=== PATIENT | female | born 1990 | race Caucasian/White ===

== ENCOUNTER 2022-10-26 17:14 | Emergency (ER) | payer BC ==
[~2022-10-26] VITALS: Ht 172.7 cm; Wt 68.0 kg
[2022-10-26 17:36] LABS: HEMATOCRIT 38.6 % (31.2-41.9); MEAN CORPUSCULAR HEMOGLOBIN 27.5 uug (24.7-32.8); MEAN CORPUSCULAR VOLUME 83.2 fL (75.5-95.3); PLATELET COUNT (AUTO) 304 K/uL (179-408)
[2022-10-26 17:47] LABS: CREATININE 0.8 mg/dL (0.6-1.3); POTASSIUM 4.3 mmol/L (3.5-5.1)
--- NOTE | 2022-10-26 17:54 | NUR ---
PT out of ER for CT scan.
[2022-10-26 17:59] LABS: BILIRUBIN,TOTAL 0.4 mg/dL (0.2-1.0)
[2022-10-26 18:07] LABS: *URINE HCG, QUAL NEG (NEGATIVE)
[2022-10-26 18:08] LABS: *BILIRUBIN,URIN NEGATIVE (NEGATIVE); *BLOOD, URINE TRACE (NEGATIVE); *CLARITY,URINE CLEAR (CLEAR); *COLOR,URINE YELLOW (YELLOW); *KETONES,URINE NEGATIVE (NEGATIVE); *UROBILINOGEN,URINE 0.2 E.U./dl (NORMAL); LEUKOCYTE ESTERASE ,URINE TRACE (NEGATIVE); NITRITE, URINE NEGATIVE (NEGATIVE); PH,URINE 6.5 (5.0-8.0); UGLUCOSE NEGATIVE (NEGATIVE)
[2022-10-26 19:15] VITALS: BP 127/66
--- NOTE | 2022-10-26 19:15 | NUR ---
Patient discharged to home in stable condition. Written and verbal after care instructions given. Patient verbalizes understanding of instructions. Stressed follow up or return to ER for worsening s/s.
[2022-10-26 21:46] LABS: BACTERIA,URINE MA /HPF (NONE SEEN); SQUAMOUS EPITHELIAL CELL,UR FEW /HPF (NONE SEEN)
== END 2022-10-26 19:15 | disposition home or self-care (01) ==
LOC: ER 17:17
DX: S06.0XAA Concussion with loss of consciousness status unknown, initial encounter (principal); R40.2362 Coma scale, best motor response, obeys commands, at arrival to emergency department; R40.2142 Coma scale, eyes open, spontaneous, at arrival to emergency department; R40.2252 Coma scale, best verbal response, oriented, at arrival to emergency department; W19.XXXA Unspecified fall, initial encounter
CPT/HCPCS: 36415; 70450; 84484; 84703; 85025; 93005; A4663

== ENCOUNTER 2023-06-23 07:25 | Emergency (ER) | payer BC, OTHER ==
[~2023-06-23] VITALS: Ht 160 cm; Wt 72.6 kg
[2023-06-23] MEDS ORDERED: KETOROLAC TROMETHAMINE 15 MG INJ ONE (07:58)
[2023-06-23] MEDS ORDERED: BENZ-13 PO (08:00)
[2023-06-23] MEDS ORDERED: IBUP-1955 PO (08:00)
[2023-06-23] MEDS: KETOROLAC TROMETHAMINE 15 MG INJ IM ONE (08:02)
[2023-06-23 08:09] VITALS: BP 103/65; O2SAT 100
== END 2023-06-23 08:09 | disposition home or self-care (01) ==
LOC: ER 07:25
DX: U07.1 COVID-19 (principal); J06.9 Acute upper respiratory infection, unspecified; B97.89 Other viral agents as the cause of diseases classified elsewhere; J02.9 Acute pharyngitis, unspecified
CPT/HCPCS: 99283; 87635; 36415; 96372; C9803; J1885; A4663

== ENCOUNTER 2023-06-25 07:49 | Emergency (ER) | payer BC, OTHER ==
[~2023-06-25] VITALS: Ht 160 cm; Wt 72.6 kg
[~2023-06-25 07:49] MED LIST: BENZ-13 PO; IBUP-1955 PO
[2023-06-25 08:00] VITALS: O2SAT 99
== END 2023-06-25 08:44 | disposition home or self-care (01) ==
LOC: ER 07:49
DX: U07.1 COVID-19 (principal); Z79.1 Long term (current) use of non-steroidal anti-inflammatories (NSAID); Z79.899 Other long term (current) drug therapy
CPT/HCPCS: 86403; A4663

== ENCOUNTER 2024-05-18 12:47 | Emergency (ER) | payer BC, OTHER ==
[~2024-05-18] VITALS: Ht 160 cm; Wt 77.1 kg
[2024-05-18] MEDS ORDERED: SCOP1PAT13 TP (13:15)
[2024-05-18] MEDS ORDERED: ONDA4TAB5 PO (13:16)
[2024-05-18] MEDS ORDERED: MECL-159 PO (13:16)
[2024-05-18] MEDS ORDERED: SCOPOLAMINE PATCH 1 MG/72 HRS PATCH TD ONE (13:18)
[2024-05-18] MEDS: SCOPOLAMINE PATCH 1 MG/72 HRS PATCH TD SCH (13:21)
[2024-05-18 13:26] LABS: *URINE HCG, QUAL NEGATIVE (NEGATIVE)
[2024-05-18 13:31] LABS: BASOPHILS % (AUTO) 0.3 % (0.0-2.0); EOSINOPHILS # (AUTO) 0.1 K/uL (0.0-0.7); EOSINOPHILS % (AUTO) 1.2 % (0.0-7.0); HEMATOCRIT 38.8 % (31.2-41.9); HEMOGLOBIN 12.3 g/dL (10.9-14.3); LYMPHOCYTES # (AUTO) 2.7 K/uL (0.8-4.8); LYMPHOCYTES % (AUTO) 47.2 % (20.5-51.5); MEAN CORPUSCULAR HEMOGLOBIN 25.4 uug (24.7-32.8); MEAN CORPUSCULAR HGB CONC 32 g/dL (32.3-35.6); MEAN CORPUSCULAR VOLUME 80.3 fL (75.5-95.3); MONOCYTES # (AUTO) 0.4 K/uL (0.1-1.30); MONOCYTES % (AUTO) 6.5 % (0.0-11.0); NEUTROPHILS # (AUTO) 2.6 K/uL (1.8-8.9); NEUTROPHILS % (AUTO) 44.8 % (38.5-71.5); PLATELET COUNT (AUTO) 380 K/uL (179-408); RED BLOOD CELL COUNT(AUTO) 4.83 MIL/uL (3.63-4.92); RED CELL DISTRIBUTION WIDTH 15.1 % (12.3-17.7); WHITE BLOOD COUNT (AUTO) 5.8 K/uL (3.8-11.8)
[2024-05-18 13:33] LABS: DIFFERENTIAL COMMENT 1
[2024-05-18 13:38] LABS: CALCIUM 8.8 mg/dL (8.5-10.1); CREATININE 0.6 mg/dL (0.6-1.3); POTASSIUM 3.5 mmol/L (3.5-5.1)
[2024-05-18 14:02] VITALS: BP 115/70; TEMP 98.5; O2SAT 99
== END 2024-05-18 14:15 | disposition home or self-care (01) ==
LOC: ER 12:47
DX: R42 Dizziness and giddiness (principal); R11.2 Nausea with vomiting, unspecified; R10.2 Pelvic and perineal pain; Z79.1 Long term (current) use of non-steroidal anti-inflammatories (NSAID); Z79.899 Other long term (current) drug therapy; Z60.2 Problems related to living alone
CPT/HCPCS: 36415; 84484; 84703; 85025; A4606; A4663

== ENCOUNTER 2024-05-23 12:07 | Emergency (ER) | payer BC, OTHER ==
[~2024-05-23] VITALS: Ht 160 cm; Wt 77.1 kg
[~2024-05-23 12:07] MED LIST changes: +MECL-159 PO; +ONDA4TAB5 PO; +SCOP1PAT13 TP
[2024-05-23 13:00] LABS: CALCIUM 8.5 mg/dL (8.5-10.1); CREATININE 0.6 mg/dL (0.6-1.3); POTASSIUM 4.3 mmol/L (3.5-5.1)
[2024-05-23] MEDS: IV NORMAL SALINE 1000 ML BAG IV ONE (13:19)
[2024-05-23 13:52] LABS: BASOPHILS # (AUTO) 0.1 K/UL (0.0-0.2); BASOPHILS % (AUTO) 1.8 % (0.0-2.0); DIFFERENTIAL COMMENT 0; EOSINOPHILS % (AUTO) 0.6 % (0.0-7.0); HEMATOCRIT 35.9 % (31.2-41.9); HEMOGLOBIN 11.4 g/dL (10.9-14.3); LYMPHOCYTES # (AUTO) 2.3 K/uL (0.8-4.8); LYMPHOCYTES % (AUTO) 46.2 % (20.5-51.5); MEAN CORPUSCULAR HEMOGLOBIN 25.6 uug (24.7-32.8); MEAN CORPUSCULAR HGB CONC 32 g/dL (32.3-35.6); MONOCYTES # (AUTO) 0.3 K/uL (0.1-1.30); MONOCYTES % (AUTO) 5.7 % (0.0-11.0); NEUTROPHILS # (AUTO) 2.3 K/uL (1.8-8.9); NEUTROPHILS % (AUTO) 45.7 % (38.5-71.5); PLATELET COUNT (AUTO) 337 K/uL (179-408); RED BLOOD CELL COUNT(AUTO) 4.43 MIL/uL (3.63-4.92); RED CELL DISTRIBUTION WIDTH 14.5 % (12.3-17.7); WHITE BLOOD COUNT (AUTO) 5.1 K/uL (3.8-11.8)
[2024-05-23 14:57] LABS: *BILIRUBIN,URIN NEGATIVE (NEGATIVE); *BLOOD, URINE NEGATIVE (NEGATIVE); *CLARITY,URINE CLEAR (CLEAR); *COLOR,URINE YELLOW (YELLOW); *KETONES,URINE NEGATIVE (NEGATIVE); *PROTEIN,URINE NEGATIVE (NEGATIVE); *UROBILINOGEN,URINE 0.2 E.U./dl (NORMAL); LEUKOCYTE ESTERASE ,URINE NEGATIVE (NEGATIVE); NITRITE, URINE NEGATIVE (NEGATIVE); UGLUCOSE NEGATIVE (NEGATIVE)
[2024-05-23 15:01] LABS: *URINE HCG, QUAL NEGATIVE (NEGATIVE)
[2024-05-23 15:59] VITALS: BP 129/82; TEMP 98.3; O2SAT 97
== END 2024-05-23 16:00 | disposition home or self-care (01) ==
LOC: ER 12:07
DX: R55 Syncope and collapse (principal); R10.2 Pelvic and perineal pain; Z79.1 Long term (current) use of non-steroidal anti-inflammatories (NSAID); Z79.899 Other long term (current) drug therapy
CPT/HCPCS: 99285; 96360; 71045; 96361; 80048; 81003; 84703; 84443; 85025; 36415; 93005 ×2; J7040; A4606; A4663

== ENCOUNTER 2024-10-09 07:19 | Emergency (ER) | payer BC, OTHER ==
[~2024-10-09] VITALS: Ht 160 cm; Wt 68.0 kg
[2024-10-09] MEDS ORDERED: MAG HYDROX/AL HYDROX/SIMETH 30 ML LIQUID UDC ONE (07:41)
[2024-10-09 07:53] LABS: BASOPHILS % (AUTO) 0.5 % (0.0-2.0); EOSINOPHILS # (AUTO) 0.1 K/uL (0.0-0.7); EOSINOPHILS % (AUTO) 1.5 % (0.0-7.0); HEMOGLOBIN 11.6 g/dL (10.9-14.3); LYMPHOCYTES % (AUTO) 42.5 % (20.5-51.5); MEAN CORPUSCULAR HEMOGLOBIN 26.3 uug (24.7-32.8); MEAN CORPUSCULAR HGB CONC 33 g/dL (32.3-35.6); MEAN CORPUSCULAR VOLUME 79.2 fL (75.5-95.3); MONOCYTES # (AUTO) 0.4 K/uL (0.1-1.30); MONOCYTES % (AUTO) 7.9 % (0.0-11.0); NEUTROPHILS # (AUTO) 2.2 K/uL (1.8-8.9); NEUTROPHILS % (AUTO) 47.6 % (38.5-71.5); PLATELET COUNT (AUTO) 303 K/uL (179-408); RED BLOOD CELL COUNT(AUTO) 4.42 MIL/uL (3.63-4.92); RED CELL DISTRIBUTION WIDTH 14.4 % (12.3-17.7); WHITE BLOOD COUNT (AUTO) 4.7 K/uL (3.8-11.8)
[2024-10-09] MEDS: MAG HYDROX/AL HYDROX/SIMETH 30 ML LIQUID UDC PO ONE (07:55)
[2024-10-09] MEDS: IV NORMAL SALINE 1000 ML BAG IV ONE (07:55)
[2024-10-09 07:57] LABS: DIFFERENTIAL COMMENT 1
[2024-10-09 08:05] LABS: CALCIUM 8.4 mg/dL (8.5-10.1); CARBON DIOXIDE 26 mmol/L (21-32); CHLORIDE 105 mmol/L (98-107); CREATININE 0.6 mg/dL (0.6-1.3); GLUCOSE 94 mg/dL (74-106); POTASSIUM 4.7 mmol/L (3.5-5.1); SODIUM SERUM 138 mmol/L (136-145); UREA NITROGEN, BLOOD 15 mg/dL (7-18)
[2024-10-09 08:13] LABS: ALANINE AMINOTRANSFERASE 33 U/L (14-59); ALBUMIN 2.9 g/dL (3.4-5.0); ALKALINE PHOSPHATASE 95 U/L (50-136); ASPARTATE AMINOTRANSFERASE 36 U/L (15-37); BILIRUBIN,DIRECT 0.1 mg/dL (0.0-0.2); BILIRUBIN,TOTAL 0.7 mg/dL (0.2-1.0); LIPASE 24 U/L (16-77); TOTAL PROTEIN, SERUM 7.6 g/dL (6.4-8.2)
[2024-10-09 08:22] LABS: PREGNANCY TEST SERUM QUAN < 1 miul/L (0-6)
[2024-10-09] MEDS ORDERED: METOCLOPRAMIDE HCL 10 MG/2 ML VIAL ONE (09:23)
[2024-10-09] MEDS ORDERED: KETOROLAC TROMETHAMINE 15 MG INJ ONE (09:23)
[2024-10-09] MEDS: METOCLOPRAMIDE HCL 10 MG/2 ML VIAL IV ONE (09:35)
[2024-10-09] MEDS: KETOROLAC TROMETHAMINE 15 MG INJ IVP ONE (09:36)
[2024-10-09 09:57] LABS: *BILIRUBIN,URIN NEGATIVE (NEGATIVE); *CLARITY,URINE CLEAR (CLEAR); *COLOR,URINE YELLOW (YELLOW); *KETONES,URINE TRACE (NEGATIVE); *PROTEIN,URINE NEGATIVE (NEGATIVE); LEUKOCYTE ESTERASE ,URINE 1+ (NEGATIVE); NITRITE, URINE NEGATIVE (NEGATIVE); PH,URINE 6.5 (5.0-8.0); UGLUCOSE NEGATIVE (NEGATIVE)
[2024-10-09 10:02] LABS: *URINE HCG, QUAL NEGATIVE (NEGATIVE)
[2024-10-09 10:03] LABS: *BLOOD, URINE TRACE (NEGATIVE)
[2024-10-09 10:04] LABS: BACTERIA,URINE MODERATE /HPF (NONE SEEN); SQUAMOUS EPITHELIAL CELL,UR MODERATE /HPF (NONE SEEN); WBC,URINE 20-50 /HPF (0-3)
[2024-10-09] MEDS ORDERED: METO-295 PO (10:10)
[2024-10-09] MEDS ORDERED: IBUP-1957 PO (10:10)
[2024-10-09 10:37] VITALS: BP 110/78; O2SAT 98
== END 2024-10-09 10:39 | disposition home or self-care (01) ==
LOC: ER 07:19
DX: R10.13 Epigastric pain (principal); R10.2 Pelvic and perineal pain; Z90.49 Acquired absence of other specified parts of digestive tract; Z98.84 Bariatric surgery status; Z98.891 History of uterine scar from previous surgery; Z79.899 Other long term (current) drug therapy
CPT/HCPCS: 99285; 74176; 96374; 76705; 96361; 96375; 80076; 80048; 81001; 84703; 83690; 85025; 85730; 84484; 84702; 36415; 93005; J1885; J2765; J7040; A4606; A4663